=== PATIENT | male | born 1950 | race Caucasian/White ===

== ENCOUNTER 2016-10-30 01:45 | Emergency (ER) | payer MEDICARE, OTHER ==
[2016-10-30] MEDS ORDERED: IPRATROPIUM/ALBUTEROL 3 ML NEB INH STA (02:07)
[2016-10-30] MEDS ORDERED: IPRATROPIUM/ALBUTEROL 3 ML NEB INH ONE (02:31)
== END 2016-10-30 03:20 | disposition home or self-care (01) ==
DX: J40 Bronchitis, not specified as acute or chronic (principal); T46.5X6A Underdosing of other antihypertensive drugs, initial encounter; Z91.128 Patient's intentional underdosing of medication regimen for other reason; I10 Essential (primary) hypertension; E11.9 Type 2 diabetes mellitus without complications
CPT/HCPCS: 71020; 94640; 94664; 99283; 99284; J7620

== ENCOUNTER 2016-10-31 22:04 | Emergency (ER) | payer MEDICARE ==
[2016-10-31] MEDS ORDERED: ACETAMINOPHEN 500 MG TABLET PO STA (22:52)
[2016-10-31] MEDS ORDERED: DEXAMETHASONE 10 MG/ML VIAL PO STA (22:54)
[2016-10-31] MEDS ORDERED: HYDROcod/ACETAM 5/325 MG TABLET PO STA (22:54)
[2016-10-31] MEDS ORDERED: DEXAMETHASONE 10 MG/ML VIAL ONE (22:57)
[2016-10-31] MEDS ORDERED: HYDROcod/ACETAM 5/325 MG TABLET ONE (22:57)
[2016-10-31] MEDS ORDERED: ACETAMINOPHEN 500 MG TABLET PO ONE (22:57)
== END 2016-11-01 00:11 | disposition home or self-care (01) ==
DX: J06.9 Acute upper respiratory infection, unspecified (principal); K44.9 Diaphragmatic hernia without obstruction or gangrene; I10 Essential (primary) hypertension
CPT/HCPCS: 71020; 87275; 87276; 99283; 99284; A9270

== ENCOUNTER 2016-12-07 14:26 | Outpatient (CLI) | payer MEDICARE | END 2016-12-07 14:27 | disposition short-term general hospital (02) | DX: T50.902A Poisoning by unspecified drugs, medicaments and biological substances, intentional self-harm, initial encounter (principal); Y92.009 Unspecified place in unspecified non-institutional (private) residence as the place of occurrence of the external cause; R46.4 Slowness and poor responsiveness; R47.81 Slurred speech; R40.0 Somnolence | CPT/HCPCS: A0425; A0427 ==